=== PATIENT | female | born 1995 | race Caucasian/White ===

== ENCOUNTER 2021-08-06 05:19 | Observation (INO) | payer OTHER ==
[~2021-08-06] VITALS: Ht 175.3 cm; Wt 95.3 kg
[2021-08-06 06:34] LABS: CLARITY URINE CLOUDY (CLEAR); COLOR URINE DARK YELLOW (YELLOW); KETONES URINE NEGATIVE (NEGATIVE); LEUKOCYTE ESTERASE URINE 1+ (NEGATIVE); NITRITE URINE NEGATIVE (NEGATIVE); OCCULT BLOOD URINE NEGATIVE (NEGATIVE); PH URINE 5.5 (4.5-8.0); PROTEIN URINE TRACE (NEGATIVE); SPECIFIC GRAVITY URINE 1.029 (1.005-1.030)
[2021-08-06] MEDS ORDERED: PREN-182 PO (06:49)
[2021-08-06] MEDS ORDERED: ACETAMINOPHEN 500MG TABLET PO NR (07:30)
[2021-08-06] MEDS ORDERED: CEFAZOLIN 2,000 MG in DEXT 5% WATER 100 ML IV NR (07:30)
[2021-08-06] MEDS ORDERED: LACTATED RINGERS 1,000 ML IV SCH (07:45)
== END 2021-08-06 09:00 | disposition home or self-care (01) ==
LOC: 8 EST LDRP 05:19
PROVIDERS: ADMIT Obstetrics & Gynecology; ATTEND Obstetrics & Gynecology
DX: O26.893 Other specified pregnancy related conditions, third trimester (principal); R10.9 Unspecified abdominal pain; R51.9 Headache, unspecified; O62.9 Abnormality of forces of labor, unspecified; Z3A.30 30 weeks gestation of pregnancy
CPT/HCPCS: 59025; 76805; 76818; 81003; 82731; 96361; 96374; G0378; J0690; J7060; 96360; 96365; 99281; G0379